=== PATIENT | male | born 1950 | race Hispanic/Latino ===

== ENCOUNTER 2019-02-16 12:21 | Inpatient (IN) | payer MEDICARE ==
[~2019-02-16] VITALS: Ht 162.6 cm; Wt 59.9 kg
--- NOTE | 2019-02-16 14:05 | NUR ---
ARRIVED TO ROOM 232 VIA EMS. AAOX3, RESP.'S EVEN AND UNLABORED. DENIES ANY SOB, DENIES ANY CURRENT PAIN. ORIENTED TO ROOM AND SURROUNDINGS. CALL LIGHT PLACED IN PT.'S HAND, VERBALIZED ABILITY TO USE. ROOM DOOR OPEN, VISIBLE FROM NURSE'S STATION.
[2019-02-16 14:23] VITALS: BP 167/79
--- NOTE | 2019-02-16 14:57 | NUR ---
Alice SEGURA NP, IN ROOM SPEAKING WITH PT.
[2019-02-16] MEDS ORDERED: SODIUM CHLORIDE 0.9% 1000ML 1,000 ML IV SCH (15:03)
[2019-02-16] MEDS ORDERED: GLUCAGON 1MG KIT 1 MG ML IM PRN (15:15)
[2019-02-16] MEDS ORDERED: DEXTROSE 50%-WATER 50 ML DISP.SYRIN IV PRN (15:15)
[2019-02-16] MEDS ORDERED: ACETAMINOPHEN 325 MG TAB PO PRN ×2 (15:30→18:15)
[2019-02-16] MEDS ORDERED: ONDANSETRON HCL 4 MG/2 ML VIAL IVP PRN (15:30)
[2019-02-16 16:04] VITALS: BP 171/89
[2019-02-16] MEDS: INSULIN HUMULIN R 100 UNIT/ML 3ML SQ SCH ×2 (16:13→21:00)
--- NOTE | 2019-02-16 17:22 | NUR ---
DR. Alexandre LUCIO IN ROOM WITH PT. FOR CONSULT.
--- NOTE | 2019-02-16 17:45 | NUR ---
HOME MEDICATIONS LIST CONFIRMED WITH PT. HOME MEDS ENTERED.
[2019-02-16] MEDS ORDERED: ASCO500T10 PO (17:57)
[2019-02-16] MEDS ORDERED: LOVA40TA2 PO (17:57)
[2019-02-16] MEDS ORDERED: DONE5TAB33 PO (17:57)
[2019-02-16] MEDS ORDERED: GLIP5TAB11 PO (17:57)
[2019-02-16] MEDS ORDERED: FURO40TA5 PO (17:57)
[2019-02-16] MEDS ORDERED: CALC667C10 PO (17:57)
[2019-02-16] MEDS ORDERED: CLOP75TA32 PO (17:57)
[2019-02-16] MEDS ORDERED: AMLO5TAB9 PO (17:57)
[2019-02-16] MEDS ORDERED: RANI300T4 PO (17:57)
[2019-02-16] MEDS ORDERED: CYAN100099 PO (17:57)
[2019-02-16] MEDS ORDERED: ISOS60TA4 PO (17:57)
[2019-02-16] MEDS ORDERED: ASPI-1181 PO (17:57)
[2019-02-16] MEDS ORDERED: FOLI0.4T2 PO (17:57)
[2019-02-16] MEDS ORDERED: OMEG-125 PO (17:57)
[2019-02-16] MEDS ORDERED: PHARMACY COMMUNICATION MISC SCH (18:15)
[2019-02-16] MEDS ORDERED: ONDANSETRON ODT 4 MG TAB SL PRN (18:15)
[2019-02-16] MEDS ORDERED: HYDRALAZINE HCL 20 MG/ML VIAL IV PRN (18:15)
[2019-02-16] MEDS ORDERED: MORPHINE SULFATE 2 MG/ML 1ML SYG IVP PRN (18:15)
[2019-02-16 19:31] VITALS: BP 182/75
--- NOTE | 2019-02-16 19:39 | NUR ---
ASSESSMENT PATIENT IS RESTING IN BED. ALERT AND ORIENTED X3. NO COMPLAINTS OF PAIN AT THIS TIME. NO SIGNS OF DISTRESS. NO SHORTNESS OF BREATH. CALL LIGHT AND BEDSIDE TABLE WITHIN REACH. REINFORCED TO CALL FOR ANY NEEDS. UNDERSTANDS THAT HE IS NPO P MIDNIGHT FOR PACEMAKER PLACEMENT. NO QUESTIONS, CONCERNS, OR NEEDS AT THIS TIME.
[2019-02-16] MEDS: DOCUSATE SODIUM 100 MG CAP PO SCH (20:02)
[2019-02-16] MEDS: ATORVASTATIN CALCIUM 20 MG TABLET PO SCH (20:02)
[2019-02-16] MEDS: HEPARIN SODIUM 5000UNIT/ML 1ML VIAL SQ SCH (20:06)
[2019-02-16 23:34] VITALS: BP 137/61
[2019-02-17] VITALS (14 sets, daily range): BP systolic 104–180; BP diastolic 63–92
[2019-02-17 03:34] LABS: BASOPHILS % (AUTO) 1.2 % (0.0-5.0); EOSINOPHILS % (AUTO) 3.8 % (0.0-8.0); MEAN CORPUSCULAR HEMOGLOBIN 28.1 pg (27.0-33.0); MEAN CORPUSCULAR HGB CONC 33.6 g/dL (32.0-36.0); MEAN CORPUSCULAR VOLUME 83.7 fL (79-99); MONOCYTES % (AUTO) 7.9 % (3.0-13.0); NEUTROPHILS % (AUTO) 69.1 % (40.0-77.0); NUCLEATED RED BLOOD CELLS 0.1 % (0.0-0.19); PLATELET COUNT (AUTO) 231 K/uL (130-400); RED BLOOD CELL COUNT(AUTO) 3.95 MIL/uL (4.50-6.20); RED CELL DISTRIBUTION WIDTH 14.5 % (11.0-15.5); WHITE BLOOD COUNT (AUTO) 6.5 K/uL (4.8-10.8)
[2019-02-17 03:42] LABS: INR 0.97 (0.85-1.15); PARTIAL THROMBOPLASTIN TIME 27.5 SEC (26.3-35.5); PROTHROMBIN TIME 10.2 SEC (9.6-11.6)
[2019-02-17 03:45] LABS: ALBUMIN 2.8 g/dL (3.5-5.0); BILIRUBIN,TOTAL 0.4 mg/dL (0.2-1.0); POTASSIUM 4.8 mmol/L (3.5-5.1); TOTAL PROTEIN, SERUM 6.8 g/dL (6.0-8.3)
[2019-02-17 03:48] LABS: CREATININE 8.6 mg/dL (0.5-1.5)
[2019-02-17] MEDS: GLIPIZIDE 5 MG TABLET PO SCH (06:14)
[2019-02-17] MEDS: INSULIN HUMULIN R 100 UNIT/ML 3ML SQ SCH ×4 (06:14→21:00)
[2019-02-17] MEDS: CALCIUM ACETATE 667 MG CAPSULE PO SCH ×3 (08:00→17:34)
--- NOTE | 2019-02-17 08:04 | NUR ---
MORNING ROUNDS PATIENT IS AAOX3, DENIES FEELING ANY CHEST DISCOMFORT. ON TELEMETRY PATIENT IS MOBITZ TYPE II 40-53. HAS BEEN NPO SINCE MIDNIGHT. SCHEDULED FOR PACEMAKER PLACEMENT THIS MORNING.
[2019-02-17] MEDS: ISOSORBIDE MONO 60 MG TAB.SR PO SCH (09:00)
[2019-02-17] MEDS: CLOPIDOGREL BISULFATE 75 MG TAB PO SCH (09:00)
[2019-02-17] MEDS ORDERED: ENOXAPARIN SODIUM 30 MG/0.3 ML SQ SCH (09:00)
[2019-02-17] MEDS: HEPARIN SODIUM 5000UNIT/ML 1ML VIAL SQ SCH (09:00)
[2019-02-17] MEDS: FOLIC ACID 400 MCG PO SCH (09:00)
[2019-02-17] MEDS: ASPIRIN 81 MG EC TAB PO SCH (09:00)
--- NOTE | 2019-02-17 10:35 | NUR ---
SS KENNETH SW reviewed pt's chart and no SS issues identified at this time. Sw to follow and assist as needed
[2019-02-17] MEDS: FAMOTIDINE/PF 20 MG/2 ML VIAL IV SCH (12:00)
[2019-02-17] MEDS ORDERED: MEPERIDINE-PF 25 MG/ML SYG ONE ×2 (12:55→13:40)
[2019-02-17] MEDS ORDERED: VANCOMYCIN 1GM+NS 250ML 500 ML IV ONE (12:55)
[2019-02-17] MEDS ORDERED: LIDOCAINE HCL 1% MDV 50ML VIAL ONE (12:55)
[2019-02-17] MEDS ORDERED: MIDAZOLAM HCL 1 MG/ML 2ML VIAL ONE ×2 (12:55→13:40)
[2019-02-17] MEDS ORDERED: BUPIVACAINE/PF 0.25% 30ML VIAL IJ ONE (12:55)
[2019-02-17] MEDS ORDERED: IOHEXOL-350 50ML VIAL IV ONE (13:32)
[2019-02-17] MEDS ORDERED: DEXTROSE 50%-WATER 50 ML DISP.SYRIN IV PRN (16:00)
--- NOTE | 2019-02-17 16:07 | NUR ---
DC PLAN PER PATIENT, STATES HE IS INDEPENDENT, LIVES ALONE, HAS A PROVIDER DAILY, AND CANE. PATIENT STATED HE IS SAFE TO RETURN HOME Addendum: 02/17/19 at 1609 by ETTA HE Amended: Links added.
--- NOTE | 2019-02-17 16:27 | NUR ---
Nutrition intervention: Nutrition notification as trigger. Pt admitted for bradycardia, ESRD. At time of RD visit pt away in Pacemaker procedure. Diet therapy NPO. Diet to begin after procedure. Recommendations: When medically feasible, advance diet therapy to heart healthy, renal dialysis, 75gmCCD. Monitor PO intake and tolerance. Consult RD as nutrition concerns arise. Addendum: 02/17/19 at [address] Amended: Links added.
[2019-02-17] MEDS: CARVEDILOL 6.25 MG TABLET PO SCH (23:04)
[2019-02-17] MEDS: ATORVASTATIN CALCIUM 20 MG TABLET PO SCH (23:04)
[2019-02-17] MEDS: DOCUSATE SODIUM 100 MG CAP PO SCH (23:04)
[2019-02-18] MEDS: TRAMADOL /APAP 37.5MG/325MG TAB PO PRN (02:34)
[2019-02-18 03:58] VITALS: BP 155/74
[2019-02-18 04:26] LABS: CREATININE 5.7 mg/dL (0.5-1.5); POTASSIUM 4.1 mmol/L (3.5-5.1)
[2019-02-18 04:27] LABS: HEMATOCRIT 29.3 % (42-54); MEAN CORPUSCULAR HEMOGLOBIN 28.2 pg (27.0-33.0); MEAN CORPUSCULAR HGB CONC 33.6 g/dL (32.0-36.0); NUCLEATED RED BLOOD CELLS 0.1 % (0.0-0.19); PLATELET COUNT (AUTO) 193 K/uL (130-400); RED BLOOD CELL COUNT(AUTO) 3.49 MIL/uL (4.50-6.20); RED CELL DISTRIBUTION WIDTH 14.6 % (11.0-15.5); WHITE BLOOD COUNT (AUTO) 5.1 K/uL (4.8-10.8)
[2019-02-18 05:13] LABS: BASOPHILS % (MANUAL) 1 % (0-2); EOSINOPHILS % (MANUAL) 2 % (1-6); LYMPHOCYTES % (MANUAL) 18 % (22-44); MAN.DIFF COMMENT-IMPRESSION MANUAL DIFFERENTIAL; MONOCYTES % (MANUAL) 4 % (2-9); SEGMENTED NEUTROPHILS % 75 % (40-70)
[2019-02-18] MEDS: INSULIN HUMULIN R 100 UNIT/ML 3ML SQ SCH ×4 (06:08→20:38)
[2019-02-18] MEDS: GLIPIZIDE 5 MG TABLET PO SCH (06:18)
[2019-02-18] MEDS: CALCIUM ACETATE 667 MG CAPSULE PO SCH ×3 (08:18→17:25)
[2019-02-18] MEDS: FAMOTIDINE/PF 20 MG/2 ML VIAL IV SCH (08:18)
[2019-02-18 08:19] VITALS: BP 151/74
[2019-02-18] MEDS: CLOPIDOGREL BISULFATE 75 MG TAB PO SCH (08:19)
[2019-02-18] MEDS: ASPIRIN 81 MG EC TAB PO SCH (08:19)
[2019-02-18] MEDS: FOLIC ACID 400 MCG PO SCH (08:22)
[2019-02-18] MEDS: CARVEDILOL 6.25 MG TABLET PO SCH ×2 (09:00→20:37)
[2019-02-18 11:58] VITALS: BP 160/93
[2019-02-18] MEDS ORDERED: IOHEXOL-350 75 ML VIAL IV ONE (13:02)
[2019-02-18 16:18] VITALS: BP 198/94
[2019-02-18] MEDS: ISOSORBIDE MONO 60 MG TAB.SR PO SCH (17:24)
[2019-02-18 19:34] VITALS: BP 184/97
[2019-02-18] MEDS: DOCUSATE SODIUM 100 MG CAP PO SCH (20:37)
[2019-02-18] MEDS: ATORVASTATIN CALCIUM 20 MG TABLET PO SCH (20:38)
[2019-02-18 23:47] VITALS: BP 164/84
[2019-02-19 04:54] VITALS: BP 155/89
[2019-02-19] MEDS: GLIPIZIDE 5 MG TABLET PO SCH (06:01)
[2019-02-19] MEDS: INSULIN HUMULIN R 100 UNIT/ML 3ML SQ SCH ×4 (06:02→16:29)
[2019-02-19 07:49] VITALS: BP 132/97
[2019-02-19 08:11] LABS: HEPATITIS A ANTIBODY IGM Negative (Negative); HEPATITIS B CORE IGM Negative (Negative); HEPATITIS Bs ANTIGEN SCREEN P Negative (Negative)
[2019-02-19] MEDS: CALCIUM ACETATE 667 MG CAPSULE PO SCH ×3 (08:14→17:00)
[2019-02-19] MEDS: CLOPIDOGREL BISULFATE 75 MG TAB PO SCH (08:14)
[2019-02-19] MEDS: ASPIRIN 81 MG EC TAB PO SCH (08:14)
[2019-02-19] MEDS: TRAMADOL /APAP 37.5MG/325MG TAB PO PRN (08:15)
[2019-02-19] MEDS: FAMOTIDINE/PF 20 MG/2 ML VIAL IV SCH (08:16)
[2019-02-19 08:20] LABS: HEMATOCRIT 27.6 % (42-54); MEAN CORPUSCULAR HEMOGLOBIN 28.2 pg (27.0-33.0); MEAN CORPUSCULAR HGB CONC 33.3 g/dL (32.0-36.0); MEAN CORPUSCULAR VOLUME 84.8 fL (79-99); PLATELET COUNT (AUTO) 172 K/uL (130-400); RED BLOOD CELL COUNT(AUTO) 3.25 MIL/uL (4.50-6.20); RED CELL DISTRIBUTION WIDTH 14.9 % (11.0-15.5); WHITE BLOOD COUNT (AUTO) 5.1 K/uL (4.8-10.8)
[2019-02-19] MEDS: CARVEDILOL 6.25 MG TABLET PO SCH ×2 (08:21→20:11)
[2019-02-19] MEDS: FOLIC ACID 400 MCG PO SCH (08:21)
[2019-02-19] MEDS: ISOSORBIDE MONO 60 MG TAB.SR PO SCH (09:00)
--- NOTE | 2019-02-19 10:32 | NUR ---
DR. Alice ENG IN ROOM SPEAKING WITH PT. Re:PLAN OF CARE. QUESTIONS ANSWERED BY DR. ENG.
[2019-02-19 12:16] VITALS: BP 157/88
--- NOTE | 2019-02-19 14:29 | NUR ---
DR. CLAY IN ROOM SPEAKING WITH PT. RE:DISCHARGE DISPOSITION AFTER HD. QUESTIONS ANSWERED BY DR. CLAY.
[2019-02-19] MEDS ORDERED: TRAM1TAB PO (14:36)
[2019-02-19 15:37] VITALS: BP 150/95
[2019-02-19 19:34] VITALS: BP 151/84
--- NOTE | 2019-02-19 20:00 | NUR ---
HD COMPLETED AND D/C PAPERWORK READY FOR PATIENT PATIENT EXPRESSED THAT HE WOULD RATHER WAIT UNTIL THE MORNING TO BE DC DUE TO IT BEING PAST 7PM AND NOT HAVING A RIDE BACK HOME TO [place]. EXPLAINED TO PATIENT THAT HOSPITAL CAN PROVIDE A TAXI FREE OF COST TO HIM SO THAT HE CAN HAVE A RIDE BACK HOME TONIGHT. PATIENT STILL WANTED TO WAIT UNTIL THE AM BECAUSE HE DIDNT HAVE ANY MONEY PAGED HOSPITALIST EXAMINING CHAIR ASSEMBLER AND SPOKE WITH SON -RADIATOR CLEANER INFORMED HIM OF SITUATION AND HE STATED THAT PATIENT WAS TECHNICALLY ALREADY DISCHARGED BY PRIMARY TEAM IN THE AM AND THAT HE WOULD SPEAK WITH [facility] INTERPRETIVE SPECIALIST AND GET BACK WITH ME. MEANWHILE, WENT BACK INTO PATIENTS ROOM TO INFORM HIM THAT THE HOSPITAL WILL PAY FOR HIS TRANSPORTATION AND PATIENT IS OK WITH THAT BUT THEN HE EXPRESSED THAT HE CAN NOT LOCATE HIS WALLET . I HELPED HIM LOOK THROUGH HIS BELONGINGS AND DID NOT SEE A WALLET, WE CALLED HIS DAUGHTER MULTIPLE TIMES AT [phone] AND LEFT MULTIPLE MESSAGES BUT SHE DID NOT ANSWER NOR RETURN ANY OF OUR CALLS. CALLED THE DAY NURSE , RIDDHI, TO SEE IF HE HAD SEEN A WALLET DURING THE DAY OR IF HE SAW A WALLET WHEN HE RECEIVED HIM AN ADMISSION FROM [facility]. RIDDHI INFORMED ME THAT ON THE DAY OF HIS TRANSFER, HE WAS LOOKING FOR HIS WALLET AND NEVER SAW ONE IN HIS BELONGINGS. I REMINDED PATIENT ABOUT HIS TRANSFER AND HE STATES THAT HE THINKS HIS DAUGHTER MAY HAVE TAKEN THE WALLET HOME WITH HER. PATIENTS MEDS WERE GIVEN TO HIM AND GLUCOSE WAS CHECKED-85, I KINDLY ASKED HIM TO EAT HIS DINNER PRIOR TO TAKING HIM DOWNSTAIRS TO BE SURE HE HAD SOME FOOD BEFORE BEDTIME. PATIENT TOOK A COUPLE OF SPOONS OF HIS SOUP AND STATED HE WASNT HUNGRY. DC INSTRUCTIONS WERE GIVEN TO PATIENT AND I REMINDED HIM OF THE NEED TO CALL ON THURSDAY TO MAKE APPOINTMENTS WITH HIS PCP, [facility] PROFESSOR AND [facility] BINDING FITTER AND REPAIRER. I ALSO SHOWED HIM THAT HE HAD A NEW RX FOR PRN TRAMADOL IF NEEDED AND REMINDED HIM OF HIS ACTIVITY RESTRICTIONS TO HIS RIGHT ARM FOR THE NEXT 6 WEEKS. PATIENT VERBALIZED UNDERSTANDING.
[2019-02-19 20:11] VITALS: BP 151/84
[2019-02-19] MEDS: ATORVASTATIN CALCIUM 20 MG TABLET PO SCH (20:11)
[2019-02-19] MEDS: DOCUSATE SODIUM 100 MG CAP PO SCH (20:11)
== END 2019-02-19 21:18 | disposition home or self-care (01) | DRG 242 ==
LOC: 2AH 13:54
PROVIDERS: ADMIT Internal Medicine; ATTEND Internal Medicine
PROC: 0JH606Z Insertion of Pacemaker, Dual Chamber into Chest Subcutaneous Tissue and Fascia, Open Approach (ICD-10-PCS; 2019-02-16)
PROC: 02HK3JZ Insertion of Pacemaker Lead into Right Ventricle, Percutaneous Approach (ICD-10-PCS; 2019-02-16)
PROC: 02H63JZ Insertion of Pacemaker Lead into Right Atrium, Percutaneous Approach (ICD-10-PCS; 2019-02-16)
PROC: B5161ZZ Fluoroscopy of Right Subclavian Vein using Low Osmolar Contrast (ICD-10-PCS; 2019-02-16)
PROC: 5A1D70Z Performance of Urinary Filtration, Intermittent, Less than 6 Hours Per Day (ICD-10-PCS; principal; 2019-02-17)
PROC: 5A1D70Z Performance of Urinary Filtration, Intermittent, Less than 6 Hours Per Day (ICD-10-PCS; 2019-02-19)
DX: I44.1 Atrioventricular block, second degree (principal); N18.6 End stage renal disease; I12.0 Hypertensive chronic kidney disease with stage 5 chronic kidney disease or end stage renal disease; I45.2 Bifascicular block; E11.22 Type 2 diabetes mellitus with diabetic chronic kidney disease; E11.21 Type 2 diabetes mellitus with diabetic nephropathy; E11.51 Type 2 diabetes mellitus with diabetic peripheral angiopathy without gangrene; I42.8 Other cardiomyopathies; E78.5 Hyperlipidemia, unspecified; I48.0 Paroxysmal atrial fibrillation; Z99.2 Dependence on renal dialysis; Z72.0 Tobacco use; Z98.42 Cataract extraction status, left eye
CPT/HCPCS: 33208; 36415; 71045; 71270; 80048; 80053; 80074; 82948; 84100; 85025; 85027; 85610; 85730; 90935; 99156; 99157; C1785; G0378; J0360; J1644; J1815; J2175; J2250; J3370; J3490; J7070; Q9967